=== PATIENT | female | born 1935 | race Caucasian/White ===

== ENCOUNTER 2017-04-30 10:33 | Outpatient (CLI) | payer OTHER ==
[~2017-04-30 10:33] MED LIST: ASA81 PO; FAMO40TA7 PO; HYDR-4100 PO; LEVO50TA77 PO; MIRT15TA7 PO; NAPR220T66 PO; SIMV40TA2 PO
== END 2017-04-30 20:23 | disposition home or self-care (01) ==
LOC: SRD 10:33
PROVIDERS: ATTEND Family Medicine
DX: Z01.818 Encounter for other preprocedural examination (principal); I70.90 Unspecified atherosclerosis
CPT/HCPCS: 71020-TC